=== PATIENT | female | born 1975 | race American Indian/Alaskan Native ===

== ENCOUNTER 2020-10-23 12:02 | Emergency (ER) | payer SELFPAY ==
[2020-10-23 14:19] VITALS: BP 140/102
--- NOTE | 2020-10-23 14:25 | Emergency Department Report ---
ED Shortness of Breath HPI - General Chief Complaint: Dyspnea/Respdistress Stated Complaint: SOB Time Seen by Provider: 10/23/20 14:18 Source: patient Mode of arrival: Ambulatory Limitations: No Limitations - History of Present Illness Initial Comments: Patient came in because of chest pain and shortness of breath. She has been having these intermittent episodes of chest pain or shortness of breath for the last several weeks. She has had no hematemesis or coffee-ground emesis. There is no melenic stool. There is no cough or congestion. She states that she just does not feel well. Patient does not know what is causing her symptoms. They are not specifically exertional. The symptoms are not positional. They are not necessarily related to orthopnea or PND. Patient states that she came here because she just did not know what to do. She describes shortness of breath sometimes with exertion and sometimes at rest. She currently does not feel dyspneic. She states that the pain she has been having is across the precordium. It is an aching pain. It is not radiating. It is not migratory. Again, this is not exertional. Patient has never had symptoms like this before. There is no history of recent travel or trauma. She has had no known coronavirus exposure. - Related Data Previous Rx's Medication Instructions Recorded Last Taken Type Potassium Chloride 30 meq PO DAILY #30 tablet.er 10/23/20 Unknown Rx Allergies Allergy/AdvReac Type Severity Reaction Status Date / Time No Known Allergies Allergy Verified 10/23/20 15:46 ED Review of Systems ROS: Stated complaint: SOB Other details as noted in HPI Comment: All other systems reviewed and negative Constitutional: denies: fever Eyes: denies: vision change ENT: denies: throat pain Respiratory: denies: cough Cardiovascular: as per HPI Endocrine: denies: unexplained weight loss Gastrointestinal: denies: abdominal pain Genitourinary: denies: dysuria Musculoskeletal: denies: back pain Skin: denies: rash Neurological: denies: headache Hematological/Lymphatic: denies: easy bruising ED Past Medical Hx - Past Medical History Hx Hypertension: Yes - Family History Family history: hypertension - Medications Home Medications: Home Medications Medication Instructions Recorded Confirmed Last Taken Type Potassium Chloride 30 meq PO DAILY #30 tablet.er 10/23/20 Unknown Rx ED Physical Exam - General Limitations: No Limitations General appearance: alert, in no apparent distress, anxious - Head Head exam: Present: atraumatic, normocephalic, normal inspection - Eye Eye exam: Present: normal appearance, PERRL, EOMI - ENT ENT exam: Present: normal exam, normal orophraynx, mucous membranes moist - Neck Neck exam: Present: normal inspection. Absent: meningismus - Respiratory Respiratory exam: Present: normal lung sounds bilaterally. Absent: respiratory distress - Cardiovascular Cardiovascular Exam: Present: regular rate, normal rhythm - GI/Abdominal GI/Abdominal exam: Present: soft. Absent: tenderness - Extremities Exam Extremities exam: Present: normal capillary refill. Absent: pedal edema, calf tenderness - Back Exam Back exam: Present: normal inspection. Absent: CVA tenderness (R), CVA tenderness (L) - Neurological Exam Neurological exam: Present: alert, oriented X3, normal gait. Absent: motor sensory deficit - Psychiatric Psychiatric exam: Present: anxious - Skin Skin exam: Present: warm, dry ED Course Vital Signs 10/23/20 14:15 Temperature 98.3 F Pulse Rate 133 H Respiratory 26 H Rate Blood Pressure 140/102 [Left] O2 Sat by Pulse 99 Oximetry - Reevaluation(s) Reevaluation #1: 10/23/20 14:24 IV, labs, and EKG were ordered. Reevaluation #2: 10/23/20 18:06 Labs were pending. Labs have been noted. These been discussed with the patient. Oral potassium has been ordered. ED Medical Decision Making - Lab Data Result diagrams: 10/23/20 17:07 10/23/20 17:07 - EKG Data -: EKG Interpreted by [place] EKG shows normal: sinus rhythm, axis, intervals, QRS complexes Rate: normal, tachycardia - EKG Data When compared to previous EKG there are: no significant change Interpretation: no acute changes - Radiology Data Radiology results: report reviewed - Medical Decision Making Patient presented with multiple issues including chest pain or shortness of breath. Etiology for the symptoms is not known. These have been prolonged in nature. She does not have ACS risk factors. She does not have a change in EKG or troponin. She does not appear to be septic or toxic. Patient does not have risk factor for pulmonary embolism. Her symptoms are nonpleuritic. There is no unilateral leg swelling or edema. She does not have known coronavirus symptoms. There was no pulse deficit to suggest aortic dissection. Radiographically, there is no obvious pneumonia or pneumothorax. Patient was feeling better. Her hypokalemia was addressed. Whether that is contributing is unclear. We did discuss outpatient treatment as well as outpatient evaluation including echocardiogram. She was invited to return for any problems. We did have a discussion about joint decision-making regarding neck steps. She elected to go home with outpatient evaluation. Critical Care Time: No Critical care attestation.: If time is entered above; I have spent that time in minutes in the direct care of this critically ill patient, excluding procedure time. ED Disposition Clinical Impression: Substernal chest pain, Sinus tachycardia, Shortness of breath, Hypokalemia Disposition: 01 HOME / SELF CARE / HOMELESS Is pt being admited?: No Does the pt Need Aspirin: No Condition: Stable Instructions: Nonspecific Chest Pain, Adult, Shortness of Breath, Adult, Easy- to-Read, Hypokalemia Additional Instructions: Eat tomatoes, bananas, and drink orange juice. Follow-up with your regular doctor for recheck and further evaluation. Continue home medications. Return for any problems or concerns. Take an aspirin every day. Prescriptions: Potassium Chloride 30 meq PO DAILY #30 tablet.er
--- NOTE | 2020-10-23 14:58 | XRay Report ---
CHEST 2 VIEWS INDICATION: pain. Acute generalized chest pain COMPARISON: None FINDINGS: SUPPORT DEVICES: None. HEART: Within normal limits. LUNGS/PLEURA: No acute air space or interstitial disease. No pneumothorax. ADDITIONAL FINDINGS: None. IMPRESSION: 1. No acute findings. Signer Name: Donnie Donald MD Signed: 10/23/2020 2:53 PM Workstation Name: [id number]
[2020-10-23] MEDS ORDERED: SODIUM CHLORIDE 0.9% 1000 ML 1,000 ML IV ONE ×2 (16:00→17:00)
[2020-10-23 17:25] LABS: Mean Corpuscular HGB Conc 37 % (30-34); Mean Corpuscular Volume 96 fl (79-97); Platelet Count 284 K/mm3 (140-440); Red Blood Count 4.49 M/mm3 (3.65-5.03); Red Cell Distribution Width 12.4 % (13.2-15.2)
[2020-10-23 17:26] LABS: Hematocrit 42.9 % (30.3-42.9); Hemoglobin 15.9 gm/dl (10.1-14.3)
[2020-10-23 17:43] LABS: Blood Urea Nitrogen 6 mg/dL (7-17); Calcium 9.1 mg/dL (8.4-10.2); Hemolysis Index 5
[2020-10-23 17:45] LABS: BUN/Creatinine Ratio 20
[2020-10-23] MEDS ORDERED: POTASSIUM CHLORIDE ER 20 MEQ TAB PO ONE (17:57)
--- NOTE | 2020-10-24 10:07 | Electrocardiograph Report ---
[facility] Test Date: 2020-10-23 Test Time: 14:40:30 Pat Name: FAINA ROSSI Department: Room: Gender: F Commissioning Engineer: : 1975 Requested By: ISAAC WANG Order Number: [id number] Reading MD: Christian Grijalva Measurements Intervals [place] Rate: 116 P: 64 WV: 170 QRS: -16 QRSD: 97 T: 8 QT: QTc: 0 Interpretive Statements Sinus tachycardia Right atrial enlargement Anteroseptal infarct, age indeterminate No previous ECG available for comparison Electronically Signed On 10-24-2020 10:07:27 EDT by Christian Grijalva
== END 2020-10-23 19:11 | disposition home or self-care (01) ==
LOC: ED 12:02
DX: R07.2 Precordial pain (principal); R00.0 Tachycardia, unspecified; R06.02 Shortness of breath; E87.6 Hypokalemia; I10 Essential (primary) hypertension; Z79.899 Other long term (current) drug therapy
CPT/HCPCS: 36415; 71046; 80048; 84484; 85027; 93005; 96360; 96361; 99284; J7030

== ENCOUNTER 2021-07-22 08:41 | Emergency (ER) | payer BC, OTHER ==
[2021-07-22 10:09] LABS: Hematocrit 40.9 % (30.3-42.9); Hemoglobin 13.8 gm/dl (10.1-14.3); Mean Corpuscular HGB Conc 34 % (30-34); Mean Corpuscular Volume 99 fl (79-97); Platelet Count 285 K/mm3 (140-440); Red Blood Count 4.14 M/mm3 (3.65-5.03); Red Cell Distribution Width 12.2 % (13.2-15.2)
[2021-07-22 10:19] LABS: Blood Urea Nitrogen 9 mg/dL (7-17); Calcium 9.4 mg/dL (8.4-10.2); Hemolysis Index 9
[2021-07-22 10:21] LABS: BUN/Creatinine Ratio 23
[2021-07-22 10:51] LABS: Basophils % (Manual) 0 % (0.0-1.8); Eosinophils % (Manual) 0 % (0.0-4.3); Myelocytes # (Manual) 0.1 K/mm3; Total Cells Counted 100
[2021-07-22 10:52] LABS: Large Platelets Few; Platelet Estimate Consistent w Auto; RBC Morphology Normal
[2021-07-22 11:34] LABS: Bilirubin,Urine NEG (Negative); Blood,Urine NEG (Negative); Color,Urine Yellow (Yellow); Mucus,Urine 2+ /HPF; Protein,Urine <15 mg/dL mg/dL (Negative); Urobilinogen,Urine < 2.0 mg/dL (<2.0)
[2021-07-22 11:35] LABS: HCG Qualitative,Urine Negative (Negative)
[2021-07-22] MEDS ORDERED: SODIUM CHLORIDE 0.9% 1000 ML 1,000 ML IV ONE (13:29)
[2021-07-22] MEDS ORDERED: MORPHINE 4 MG/1 ML INJ IV ONE (13:29)
[2021-07-22] MEDS ORDERED: ONDANSETRON 4 MG/2 ML INJ IV ONE (13:29)
[2021-07-22 14:47] LABS: Alanine Aminotransferase 52 units/L (7-56); Albumin 4.5 g/dL (3.9-5)
[2021-07-22 15:11] LABS: Bilirubin,Direct < 0.2 mg/dL (0-0.2)
--- NOTE | 2021-07-22 15:42 | Cat Scan Report ---
CT abdomen pelvis w con INDICATION: abd pain with n/v. COMPARISON: None TECHNIQUE: Abdominal and pelvic CT exam performed. All CT scans at this location are performed using CT dose reduction for ALARA by means of automated exposure control. FINDINGS: CT ABDOMEN and PELVIS: Lung Bases: Dependent atelectasis. Liver: No significant abnormality. Biliary: No significant abnormality. Spleen: No significant abnormality. Pancreas: No significant abnormality. Adrenals: No significant abnormality. 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 There is mild right hydroureteronephrosis. No intraureteral stone identified. Lymphatics: There is a mildly prominent lymph node seen posterior medial to the right external jugula r vein which measures 1.5 cm on image 128 of series 2. Otherwise there are scattered lymph nodes whic h are not pathologically enlarged. Vasculature: Mild atherosclerosis. Bowel: No significant abnormality. Normal appendix. Pelvis: No significant abnormality. Osseous Structures: No aggressive osseous lesion. Additional Findings: None IMPRESSION: 1. Mild right hydroureteronephrosis without obstructing stone. Findings are nonspecific, correlate wi th urinalysis. 2. There is a mildly prominent lymph node along the right iliac chain. Although this is likely benign , a follow-up CT in 6 months is recommended to ensure stability Signer Name: Bran Bal MD Signed: 07/22/2021 3:38 PM Workstation Name: [id number]
--- NOTE | 2021-07-22 15:49 | Emergency Department Report ---
ED Abdominal Pain HPI - General Chief Complaint: Abdominal Pain Stated Complaint: ABD PAIN/GALSTONES POTASSIUM Time Seen by Provider: 07/22/21 13:18 Source: patient Mode of arrival: Ambulatory Limitations: No Limitations - History of Present Illness Initial Comments: This is a 46-year-old female nontoxic, well nourished in appearance, no acute signs of distress presents to the ED with c/o of nausea and vomiting and abdominal pain several days. Patient describes vomiting as food content and yellow gastric acid. Patient describes abdominal pain as cramping and aching with level of 8/10 to RLQ without radiation. Patient denies chest pain, short of breath, fever, hemoptysis, blood in stool, chills, headache, stiff neck, numbness or tingling. Patient denies any diarrhea or constipation. Patient denies any urinary symptoms. Denies any blood in stool. Patient denies any recent travels. Patient denies any allergies. MD Complaint: abdominal pain -: days(s) Location: RLQ Radiation: none Migration to: no migration Severity: mild Severity scale (0 -10): 8 Quality: cramping, aching Consistency: constant Improves With: nothing Worsens With: nothing Associated Symptoms: nausea, vomiting. denies: diarrhea, fever, chills, constipation, dysuria, hematemesis, hematochezia, melena, hematuria, anorexia, syncope - Related Data Previous Rx's Medication Instructions Recorded Last Taken Type Ibuprofen [Motrin] 800 mg PO Q8HR PRN #20 tablet 10/23/20 Unknown Rx Potassium Chloride 30 meq PO DAILY #30 tablet.er 10/23/20 Unknown Rx Dicyclomine [Bentyl] 20 mg PO BID PRN #14 tablet 07/22/21 Unknown Rx Ondansetron [Zofran Odt] 4 mg PO Q8HR PRN #12 tab.rapdis 07/22/21 Unknown Rx Allergies Allergy/AdvReac Type Severity Reaction Status Date / Time No Known Allergies Allergy Verified 10/23/20 15:46 ED Review of Systems ROS: Stated complaint: ABD PAIN/GALSTONES POTASSIUM Other details as noted in HPI Comment: All other systems reviewed and negative Constitutional: denies: chills, fever Eyes: denies: eye pain, eye discharge, vision change ENT: denies: ear pain, throat pain Respiratory: denies: cough, shortness of breath, wheezing Cardiovascular: denies: chest pain, palpitations Endocrine: no symptoms reported Gastrointestinal: abdominal pain, nausea, vomiting. denies: diarrhea, constipation, hematemesis, melena, hematochezia Genitourinary: denies: urgency, dysuria, discharge Musculoskeletal: denies: back pain, joint swelling, arthralgia Skin: denies: rash, lesions Neurological: denies: headache, weakness, paresthesias Psychiatric: denies: anxiety, depression Hematological/Lymphatic: denies: easy bleeding, easy bruising ED Past Medical Hx - Past Medical History Hx Hypertension: Yes - Medications Home Medications: Home Medications Medication Instructions Recorded Confirmed Last Taken Type Ibuprofen [Motrin] 800 mg PO Q8HR PRN #20 tablet 10/23/20 Unknown Rx Potassium Chloride 30 meq PO DAILY #30 tablet.er 10/23/20 Unknown Rx Dicyclomine [Bentyl] 20 mg PO BID PRN #14 tablet 07/22/21 Unknown Rx Ondansetron [Zofran Odt] 4 mg PO Q8HR PRN #12 tab.rapdis 07/22/21 Unknown Rx ED Physical Exam - General Limitations: No Limitations General appearance: alert, in no apparent distress - Head Head exam: Present: atraumatic, normocephalic - Eye Eye exam: Present: normal appearance - Neck Neck exam: Present: normal inspection, full ROM. Absent: lymphadenopathy - Respiratory Respiratory exam: Present: normal lung sounds bilaterally. Absent: respiratory distress, wheezes, rales, rhonchi, stridor, chest wall tenderness, accessory muscle use, decreased breath sounds, prolonged expiratory - Cardiovascular Cardiovascular Exam: Present: regular rate, normal rhythm, normal heart sounds. Absent: bradycardia, tachycardia, irregular rhythm, systolic murmur, diastolic murmur, rubs, gallop - GI/Abdominal GI/Abdominal exam: Present: soft, tenderness (RLQ tenderness), normal bowel sounds. Absent: distended, guarding, rebound, rigid, diminished bowel sounds - Extremities Exam Extremities exam: Present: normal inspection, full ROM - Back Exam Back exam: Present: normal inspection, full ROM. Absent: tenderness, CVA t enderness (R), CVA tenderness (L), muscle spasm, paraspinal tenderness, vertebral tenderness, rash noted - Neurological Exam Neurological exam: Present: alert, oriented X3, normal gait - Psychiatric Psychiatric exam: Present: normal affect, normal mood - Skin Skin exam: Present: warm, dry, intact, normal color. Absent: rash ED Course Vital Signs 07/22/21 07/22/21 09:31 14:31 Temperature 98.8 F Pulse Rate 89 Respiratory 16 16 Rate Blood Pressure 101/88 [Left] O2 Sat by Pulse 99 Oximetry ED Medical Decision Making - Lab Data Result diagrams: 07/22/21 09:36 07/22/21 09:36 Lab Results 07/22/21 07/22/21 07/22/21 Range/Units 09:36 09:36 09:36 WBC 5.2 (4.5-11.0) K/mm3 RBC 4.14 (3.65-5.03) M/mm3 Hgb 13.8 (10.1-14.3) gm/dl Hct 40.9 (30.3-42.9) % MCV 99 H (79-97) fl MCH 33 H (28-32) pg MCHC 34 (30-34) % RDW 12.2 L (13.2-15.2) % Plt Count 285 (140-440) K/mm3 Add Manual Diff Complete Total Counted 100 Seg Neuts % (Manual) 35.0 L (40.0-70.0) % Band Neutrophils % 0 % Lymphocytes % (Manual) 53.0 H (13.4-35.0) % Reactive Lymphs % (Man) 0 % Monocytes % (Manual) 9.0 H (0.0-7.3) % Eosinophils % (Manual) 0 (0.0-4.3) % Basophils % (Manual) 0 (0.0-1.8) % Metamyelocytes % 1.0 % Myelocytes % 2.0 % Promyelocytes % 0 % Blast Cells % 0 % Nucleated RBC % Not Reportable Seg Neutrophils # Man 1.8 (1.8-7.7) K/mm3 Band Neutrophils # 0.0 K/mm3 Lymphocytes # (Manual) 2.8 (1.2-5.4) K/mm3 Abs React Lymphs (Man) 0.0 K/mm3 Monocytes # (Manual) 0.5 (0.0-0.8) K/mm3 Eosinophils # (Manual) 0.0 (0.0-0.4) K/mm3 Basophils # (Manual) 0.0 (0.0-0.1) K/mm3 Metamyelocytes # 0.1 K/mm3 Myelocytes # 0.1 K/mm3 Promyelocytes # 0.0 K/mm3 Blast Cells # 0.0 K/mm3 WBC Morphology Not Reportable Hypersegmented Neuts Not Reportable Hyposegmented Neuts Not Reportable Hypogranular Neuts Not Reportable Smudge Cells Not Reportable Toxic Granulation Not Reportable Toxic Vacuolation Not Reportable Dohle Bodies Not Reportable Pelger-Huet Anomaly Not Reportable Shani Rods Not Reportable Platelet Estimate Consistent w auto Clumped Platelets Not Reportable Plt Clumps, EDTA Not Reportable Large Platelets Few Giant Platelets Not Reportable Platelet Satelliting Not Reportable Plt Morphology Comment Not Reportable RBC Morphology Normal Dimorphic RBCs Not Reportable Polychromasia Not Reportable Hypochromasia Not Reportable Poikilocytosis Not Reportable Anisocytosis Not Reportable Microcytosis Not Reportable Macrocytosis Not Reportable Spherocytes Not Reportable Pappenheimer Bodies Not Reportable Sickle Cells Not Reportable Target Cells Not Reportable Tear Drop Cells Not Reportable Ovalocytes Not Reportable Helmet Cells Not Reportable [place] Bodies Not Reportable Levant Rings Not Reportable [place] Cells Not Reportable Bite Cells Not Reportable Crenated Cell Not Reportable Elliptocytes Not Reportable Acanthocytes (Spur) Not Reportable Rouleaux Not Reportable Hemoglobin C Crystals Not Reportable Schistocytes Not Reportable Malaria parasites Not Reportable Naveed Bodies Not Reportable Hem Pathologist Commnt No Sodium 141 (137-145) mmol/L Potassium 3.8 (3.6-5.0) mmol/L Chloride 105.9 (98-107) mmol/L Carbon Dioxide 23 (22-30) mmol/L Anion Gap 16 mmol/L BUN 9 (7-17) mg/dL Creatinine 0.4 L (0.6-1.2) mg/dL Estimated GFR > 60 ml/min BUN/Creatinine Ratio 23 % Glucose 85 (65-100) mg/dL Calcium 9.4 (8.4-10.2) mg/dL Total Bilirubin 0.30 (0.1-1.2) mg/dL Direct Bilirubin < 0.2 (0-0.2) mg/dL Indirect Bilirubin 0.1 mg/dL AST 76 H (5-40) units/L ALT 52 (7-56) units/L Alkaline Phosphatase 134 H (35-129) units/L Total Protein 8.6 H (6.3-8.2) g/dL Albumin 4.5 (3.9-5) g/dL Albumin/Globulin Ratio 1.1 % Lipase 23 (13-60) units/L Urine Color (Yellow) Urine Turbidity (Clear) Urine pH (5.0-7.0) Ur Specific [place] (1.003-1.030) Urine Protein (Negative) mg/dL Urine Glucose (UA) (Negative) mg/dL Urine Ketones (Negative) mg/dL Urine Blood (Negative) Urine Nitrite (Negative) Urine Bilirubin (Negative) Urine Urobilinogen (<2.0) mg/dL Ur Leukocyte Esterase (Negative) Urine WBC (Auto) (0.0-6.0) /HPF Urine RBC (Auto) (0.0-6.0) /HPF U Epithel Cells (Auto) (0-13.0) /HPF Urine Mucus /HPF Urine HCG, Qual (Negative) 07/22/21 Range/Units Unknown WBC (4.5-11.0) K/mm3 RBC (3.65-5.03) M/mm3 Hgb (10.1-14.3) gm/dl Hct (30.3-42.9) % MCV (79-97) fl MCH (28-32) pg MCHC (30-34) % RDW (13.2-15.2) % Plt Count (140-440) K/mm3 Add Manual Diff Total Counted Seg Neuts % (Manual) (40.0-70.0) % Band Neutrophils % % Lymphocytes % (Manual) (13.4-35.0) % Reactive Lymphs % (Man) % Monocytes % (Manual) (0.0-7.3) % Eosinophils % (Manual) (0.0-4.3) % Basophils % (Manual) (0.0-1.8) % Metamyelocytes % % Myelocytes % % Promyelocytes % % Blast Cells % % Nucleated RBC % Seg Neutrophils # Man (1.8-7.7) K/mm3 Band Neutrophils # K/mm3 Lymphocytes # (Manual) (1.2-5.4) K/mm3 Abs React Lymphs (Man) K/mm3 Monocytes # (Manual) (0.0-0.8) K/mm3 Eosinophils # (Manual) (0.0-0.4) K/mm3 Basophils # (Manual) (0.0-0.1) K/mm3 Metamyelocytes # K/mm3 Myelocytes # K/mm3 Promyelocytes # K/mm3 Blast Cells # K/mm3 WBC Morphology Hypersegmented Neuts Hyposegmented Neuts Hypogranular Neuts Smudge Cells Toxic Granulation Toxic Vacuolation Dohle Bodies Pelger-Huet Anomaly Shani Rods Platelet Estimate Clumped Platelets Plt Clumps, EDTA Large Platelets Giant Platelets Platelet Satelliting Plt Morphology Comment RBC Morphology Dimorphic RBCs Polychromasia Hypochromasia Poikilocytosis Anisocytosis Microcytosis Macrocytosis Spherocytes Pappenheimer Bodies Sickle Cells Target Cells Tear Drop Cells Ovalocytes Helmet Cells [place] Bodies Levant Rings Feliberto Cells Bite Cells Crenated Cell Elliptocytes Acanthocytes (Spur) Rouleaux Hemoglobin C Crystals Schistocytes Malaria parasites Naveed Bodies Hem Pathologist Commnt Sodium (137-145) mmol/L Potassium (3.6-5.0) mmol/L Chloride (98-107) mmol/L Carbon Dioxide (22-30) mmol/L Anion Gap mmol/L BUN (7-17) mg/dL Creatinine (0.6-1.2) mg/dL Estimated GFR ml/min BUN/Creatinine Ratio % Glucose (65-100) mg/dL Calcium (8.4-10.2) mg/dL Total Bilirubin (0.1-1.2) mg/dL Direct Bilirubin (0-0.2) mg/dL Indirect Bilirubin mg/dL AST (5-40) units/L ALT (7-56) units/L Alkaline Phosphatase (35-129) units/L Total Protein (6.3-8.2) g/dL Albumin (3.9-5) g/dL Albumin/Globulin Ratio % Lipase (13-60) units/L Urine Color Yellow (Yellow) Urine Turbidity Clear (Clear) Urine pH 6.0 (5.0-7.0) Ur Specific [place] 1.018 (1.003-1.030) Urine Protein <15 mg/dl (Negative) mg/dL Urine Glucose (UA) Neg (Negative) mg/dL Urine Ketones Neg (Negative) mg/dL Urine Blood Neg (Negative) Urine Nitrite Neg (Negative) Urine Bilirubin Neg (Negative) Urine Urobilinogen < 2.0 (<2.0) mg/dL Ur Leukocyte Esterase Tr (Negative) Urine WBC (Auto) 6.0 (0.0-6.0) /HPF Urine RBC (Auto) 2.0 (0.0-6.0) /HPF U Epithel Cells (Auto) 3.0 (0-13.0) /HPF Urine Mucus 2+ /HPF Urine HCG, Qual Negative (Negative) - Radiology Data [facility] [address] [place] [address] Cat Scan Report Signed Patient: FAINA ALVAREZ MR#: [id number] 7 : 1975 Acct:[id number] Age/Sex: 46 / F ADM Date: 07/22/21 Loc: ED Attending Dr: Ordering Physician: JENNIFFER BOTELLO NP Date of Service: 07/22/21 Procedure(s): CT abdomen pelvis w con Accession Number(s): [id number] cc: JENNIFFER BOTELLO NP CT abdomen pelvis w con INDICATION: abd pain with n/v. COMPARISON: None TECHNIQUE: Abdominal and pelvic CT exam performed. All CT scans at this location are performed using CT dose reduction for ALARA by means of automated exposure control. FINDINGS: CT ABDOMEN and PELVIS: Lung Bases: Dependent atelectasis. Liver: No significant abnormality. Biliary: No significant abnormality. Spleen: No significant abnormality. Pancreas: No significant abnormality. Adrenals: No significant abnormality. 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 There is mild right hydroureteronephrosis. No intraureteral stone identified. Lymphatics: There is a mildly prominent lymph node seen posterior medial to the right external jugular vein which measures 1.5 cm on image 128 of series 2. Otherwise there are scattered lymph nodes which are not pathologically enlarged. Vasculature: Mild atherosclerosis. Bowel: No significant abnormality. Normal appendix. Pelvis: No significant abnormality. Osseous Structures: No aggressive osseous lesion. Additional Findings: None IMPRESSION: 1. Mild right hydroureteronephrosis without obstructing stone. Findings are nonspecific, correlate with urinalysis. 2. There is a mildly prominent lymph node along the right iliac chain. Although this is likely benign, a follow-up CT in 6 months is recommended to ensure stability Signer Name: Bran Bal MD Signed: 07/22/2021 3:38 PM Workstation Name: [id number] Transcribed By: CS Dictated By: Bran Bal MD Electronically Authenticated By: Bran Bal MD Signed Date/Time: 07/22/211537 DD/ 29 TD/TT: - Medical Decision Making This is a 46-year-old female that presents with abdominal pain, hydronephrosis, nausea vomiting.. Patient is stable and was examined by me. Labs obtained. UA obtained. CT of abdomen obtained and dictated by the radiologist. Patient is notified of the report with no questions noted by the patient. Vital signs are stable prior to discharge. Patient received medical treatment in the ED which patient stated symptoms has resovled and subsided. Was instructed note to operate any machinery due to possible drowsiness and stated someone will drive the patient home. A by mouth challenge has been obtained and patient tolerated well with no nausea vomiting. Patient was also instructed to Follow-up with a primary care doctor in 3-5 days or if symptoms worsen and continue return to emergency room as soon as possible. At time of discharge, the patient does not seem toxic or ill in appearance. No acute signs of distress noted. Patient agrees to discharge treatment plan of care. No further questions noted by the patient. Critical care attestation.: If time is entered above; I have spent that time in minutes in the direct care of this critically ill patient, excluding procedure time. ED Disposition Clinical Impression: Hydronephrosis, right Abdominal pain Qualifiers: Abdominal location: right lower quadrant Qualified Code(s): R10.31 - Right l ower quadrant pain Nausea & vomiting Qualifiers: Vomiting type: unspecified Qualified Code(s): R11.2 - Nausea with vomiting, unspecified Disposition: 01 HOME / SELF CARE / HOMELESS Is pt being admited?: No Does the pt Need Aspirin: No Condition: Stable Instructions: Abdominal Pain (ED), Nausea and Vomiting, Adult, Abdominal Pain, Adult, Hydronephrosis Additional Instructions: Follow-up with a primary care and register of deeds doctor in 3-5 days or if symptoms worsen and continue return to emergency room as soon as possible. Prescriptions: Dicyclomine [Bentyl] 20 mg PO BID PRN #14 tablet PRN Reason: abdominal pain Ondansetron [Zofran Odt] 4 mg PO Q8HR PRN #12 tab.rapdis PRN Reason: nausea Referrals: PRIMARY CAREMD [Referring] - 3-5 Days ISABEL LAINEZ MD [Staff Physician] - 3-5 Days [facility] [Provider Group] - 3-5 Days Time of Disposition: 15:51
[2021-07-22 18:07] VITALS: BP 128/78
== END 2021-07-22 18:05 | disposition home or self-care (01) ==
LOC: ED 08:41
DX: N13.30 Unspecified hydronephrosis (principal); R10.30 Lower abdominal pain, unspecified; R11.2 Nausea with vomiting, unspecified
CPT/HCPCS: 36415; 74177; 80048; 80076; 81001; 81025; 83690; 85007; 85025; 96361; 96374; 96375; 99284; J2270; J2405; J7030; Q9967

== ENCOUNTER 2021-09-18 05:11 | Emergency (ER) | payer BC ==
[2021-09-18] MEDS ORDERED: IBUPROFEN 800 MG TAB PO ONE (09:02)
[2021-09-18 10:15] LABS: Bilirubin,Urine 1+ (Negative); Color,Urine Yellow (Yellow)
[2021-09-18 10:16] LABS: Blood,Urine 3+ (Negative); Ictotest,Urine Negative (Negative)
[2021-09-18 10:29] LABS: Bacteria,Urine 1+ /HPF (Negative); Calcium Oxalate Crystals,Urine 1+; Mucus,Urine 3+ /HPF; Renal Epithelial Cells,Urine 3 /LPF
[2021-09-18] MEDS ORDERED: LIDOCAINE-MPF (1%) 10 MG/1 ML VIAL 5 ML INFILTRATI ONE (10:34)
--- NOTE | 2021-09-18 10:35 | Emergency Department Report ---
ED Female HPI - General Chief complaint: Vaginal Bleeding Stated complaint: BLEEDING STOMAC,BACK PAIN Time Seen by Provider: 09/18/21 07:58 Source: patient Mode of arrival: Ambulatory Limitations: No Limitations - History of Present Illness Initial comments: Patient is a 46-year-old female she comes to the emergency room this morning after having 2 episodes of vaginal bleeding last night. She states that she has not had a menstrual cycle in over 25 years. The 2 episodes overnight were after urinating and in small amounts. Patient does not have an [facility]. Patient does not think urine is involved. Patient is having what she describes as cramping of her suprapubic area. Patient denies any vaginal discharge. She denies back pain. She denies fever or chills. She denies nausea vomiting or diarrhea. Patient is ambulatory, nontoxic [id number] on arrival to ER. MD Complaint: vaginal bleeding -: Sudden, hour(s) Severity: mild Severity scale (0 -10): 2 Quality: cramping Consistency: intermittent Improves with: none Worsens with: none Are you Now?: No Associated Symptoms: denies other symptoms, vaginal bleeding. denies: vaginal discharge, abdominal pain, nausea/vomiting, fever/chills, headaches, loss of appetite, dysuria, hematuria, rash, seizure, shortness of breath, syncope, weakness - Related Data Sexually active: No Home Medications Medication Instructions Recorded Confirmed Last Taken Amlodipine Besylate [Norvasc] 5 mg PO DAILY 07/25/21 07/28/21 Unknown Cyproheptadine [Periactin] 4 mg PO HS PRN 07/29/21 07/29/21 Unknown Escitalopram Oxalate [Lexapro] 20 mg PO QDAY 07/29/21 07/29/21 Unknown Nortriptyline [Pamelor] 10 mg PO QHS 07/29/21 07/29/21 Unknown Potassium Bicarbonate/Cit AC 20 meq PO QDAY 07/29/21 07/29/21 3 Days Ago [Effer-K 20 Meq] ~07/26/21 megestroL [Megace] 20 mg PO QDAY PRN 07/29/21 07/29/21 07/25/21 propranoloL [Inderal] 10 mg PO BID PRN 07/29/21 07/29/21 1 Week Ago ~07/22/21 Previous Rx's Medication Instructions Recorded Last Taken Type Sulfamethoxazole/Trimethoprim 1 each PO BID #10 tablet 09/18/21 Unknown Rx [Bactrim DS TAB] Allergies Allergy/AdvReac Type Severity Reaction Status Date / Time tramadol AdvReac Vomiting Verified 07/25/21 14:16 ED Review of Systems ROS: Stated complaint: BLEEDING STOMAC,BACK PAIN Other details as noted in HPI Comment: All other systems reviewed and negative ED Past Medical Hx - Past Medical History Previous Medical History?: Yes Hx Hypertension: Yes Hx Congestive Heart Failure: No Hx Diabetes: No Hx GERD: Yes Hx Liver Disease: Yes (Mildly elevated LFTs) Hx Sickle Cell Disease: No Hx Headaches / Migraines: Yes (Migraines) Hx Asthma: No Hx COPD: No - Surgical History Past Surgical History?: Yes Additional Surgical History: partial hysterectomy. tubaligation - Family History Family history: no significant - Social History Smoking Status: Unknown if ever smoked Substance Use Type: None - Medications Home Medications: Home Medications Medication Instructions Recorded Confirmed Last Taken Type Amlodipine Besylate [Norvasc] 5 mg PO DAILY 07/25/21 07/28/21 Unknown History Cyproheptadine [Periactin] 4 mg PO HS PRN 07/29/21 07/29/21 Unknown History Escitalopram Oxalate [Lexapro] 20 mg PO QDAY 07/29/21 07/29/21 Unknown History Nortriptyline [Pamelor] 10 mg PO QHS 07/29/21 07/29/21 Unknown History Potassium Bicarbonate/Cit AC 20 meq PO QDAY 07/29/21 07/29/21 3 Days Ago History [Effer-K 20 Meq] ~07/26/21 megestroL [Megace] 20 mg PO QDAY PRN 07/29/21 07/29/21 07/25/21 History propranoloL [Inderal] 10 mg PO BID PRN 07/29/21 07/29/21 1 Week Ago History ~07/22/21 Sulfamethoxazole/Trimethoprim 1 each PO BID #10 tablet 09/18/21 Unknown Rx [Bactrim DS TAB] ED Physical Exam - General Limitations: No Limitations General appearance: alert, in no apparent distress - Head Head exam: Present: atraumatic, normocephalic - Eye Eye exam: Present: normal appearance - ENT ENT exam: Present: mucous membranes moist - Neck Neck exam: Present: normal inspection - Respiratory Respiratory exam: Present: normal lung sounds bilaterally. Absent: respiratory distress - Cardiovascular Cardiovascular Exam: Present: regular rate, normal rhythm. Absent: systolic murmur, diastolic murmur, rubs, gallop - GI/Abdominal GI/Abdominal exam: Present: soft, normal bowel sounds - Extremities Exam Extremities exam: Present: normal inspection - Back Exam Back exam: Present: normal inspection - Neurological Exam Neurological exam: Present: alert, oriented X3 - Psychiatric Psychiatric exam: Present: normal affect, normal mood - Skin Skin exam: Present: warm, dry, intact, normal color. Absent: rash ED Course Vital Signs 09/18/21 09/18/21 05:24 09:14 Temperature 98.6 F Pulse Rate 87 Respiratory 18 14 Rate Blood Pressure 129/88 O2 Sat by Pulse 98 Oximetry - Reevaluation(s) Reevaluation #1: 09/18/21 10:47 Home medications include blood pressure medications, supplemental potassium and multivitamins. ED Medical Decision Making - Medical Decision Making Lab Results 09/18/21 Range/Units Unknown Urine Color Yellow (Yellow) Urine Turbidity Clear (Clear) Urine pH 7.0 (5.0-7.0) Ur Specific [place] 1.020 (1.003-1.030) Urine Protein 100 mg/dl (Negative) mg/dL Urine Glucose (UA) Negative (Negative) mg/dL Urine Ketones 2+ (Negative) mg/dL Urine Blood 3+ (Negative) Urine Nitrite Negative (Negative) Urine Bilirubin 1+ (Negative) Urine Ictotest Negative (Negative) Urine Urobilinogen 0.0 (<2.0) mg/dL Ur Leukocyte Esterase 1+ (Negative) Urine WBC (Auto) 25.0 H (0.0-6.0) /HPF Urine RBC (Auto) 33.0 (0.0-6.0) /HPF U Epithel Cells (Auto) 15.0 H (0-13.0) /HPF Urine Bacteria (Auto) 1+ (Negative) /HPF Ur Renal Epithelial Cell 3 /LPF Calcium Oxalate Crystal 1+ Urine Mucus 3+ /HPF Vital Signs 09/18/21 09/18/21 05:24 09:14 Temperature 98.6 F Pulse Rate 87 Respiratory 18 14 Rate Blood Pressure 129/88 O2 Sat by Pulse 98 Oximetry UA noted. I had the patient collect the urine in such a way that there would be no contamination from the vaginal vault. She does have 25 WBCs and +1 leuks. In addition she has 33 RBCs and 3+ blood. Urine has reflexed to a culture. Patient was given a gram of Rocephin in the ER. She was medicated for pain with Motrin. Patient will be treated with Bactrim for her UTI. Should she need something else on culture data we need to call her. Patient being referred to [facility] for follow-up care given her concerns for questionable uterine bleeding. Her abdominal exam remains unremarkable with no abdominal tenderness and no CT VA tenderness.Patient has no hypotension or tachycardia. She has no fever. Her pain is not consistent with that of kidney stones. - Differential Diagnosis UTI versus vaginal bleeding. Critical care attestation.: If time is entered above; I have spent that time in minutes in the direct care of this critically ill patient, excluding procedure time. ED Disposition Clinical Impression: UTI (urinary tract infection) Qualifiers: Urinary tract infection type: site unspecified Hematuria presence: with hematuria Qualified Code(s): N39.0 - Urinary tract infection, site not specified; R31.9 - Hematuria, unspecified Disposition: HOME / SELF CARE / HOMELESS Is pt being admited?: No Does the pt Need Aspirin: No Condition: Stable Instructions: Urinary Tract Infection, Adult Additional Instructions: Take medication as instructed until gone. In the meantime to call [facility] to make a follow-up appointment as we discussed. This bleeding may strictly be urinary. But she should have a follow-up evaluation. Drink a lot of water. Take Motrin or Tylenol for pain. Diet and activity as tolerated. Drink a lot of water I have given you referrals below Referrals: ISABEL LAINEZ MD [Primary Care Provider] - 3-5 Days NAMITA ALVA MD [Staff Physician] - 3-5 Days Forms: Work/School Release Form(ED) Time of Disposition: 10:50
[2021-09-18 11:45] VITALS: BP 134/86
== END 2021-09-18 11:48 | disposition home or self-care (01) ==
LOC: ED 05:11
DX: N39.0 Urinary tract infection, site not specified (principal); Z88.6 Allergy status to analgesic agent; I10 Essential (primary) hypertension
CPT/HCPCS: 81001; 87086; 96372; 99283; J0696; J3490

== ENCOUNTER 2021-10-29 22:24 | Emergency (ER) | payer BC ==
[2021-10-30 02:15] LABS: Basophils # (Auto) 0.1 K/mm3 (0.0-0.1); Basophils % (Auto) 0.9 % (0.0-1.8); Eosinophils # (Auto) 0.1 K/mm3 (0.0-0.4); Eosinophils % (Auto) 0.8 % (0.0-4.3); Hematocrit 40.3 % (30.3-42.9); Hemoglobin 13.3 gm/dl (10.1-14.3); Lymphocytes # (Auto) 2.2 K/mm3 (1.2-5.4); Lymphocytes % (Auto) 35.8 % (13.4-35.0); Mean Corpuscular HGB Conc 33 % (30-34); Mean Corpuscular Volume 99 fl (79-97); Monocytes # (Auto) 0.6 K/mm3 (0.0-0.8); Monocytes % (Auto) 9.8 % (0.0-7.3); Platelet Count 289 K/mm3 (140-440); Red Blood Count 4.07 M/mm3 (3.65-5.03); Red Cell Distribution Width 12.7 % (13.2-15.2)
[2021-10-30 02:38] LABS: Alanine Aminotransferase 36 units/L (7-56); Albumin 4.5 g/dL (3.9-5); Blood Urea Nitrogen 8 mg/dL (7-17); Calcium 10.4 mg/dL (8.4-10.2); Hemolysis Index 2
[2021-10-30 02:42] LABS: BUN/Creatinine Ratio 16
[2021-10-30] MEDS ORDERED: SODIUM CHLORIDE 0.9% 1000 ML 1,000 ML IV ONE (07:43)
--- NOTE | 2021-10-30 08:12 | Emergency Department Report ---
ED General Adult HPI - General Chief complaint: Weakness Stated complaint: POSS LOW POTASSIUM Time Seen by Provider: 10/30/21 07:18 Source: patient Mode of arrival: Ambulatory Limitations: No Limitations - History of Present Illness Initial comments: This is a 46-year-old female nontoxic, well nourished in appearance, no acute signs of distress presents to the ED with a concern of low potassium. Patient has history of acute on chronic intermittent hypokalemia. Patient stated she was in her primary care and had blood drawn yesterday and developed left-sided numbness had an episode of diarrhea weakness which currently symptoms that she stated has resolved. Patient did she was concerned for her potassium because symptoms were similar when hypokalemic occurs. Otherwise currently patient denies any symptoms or complaints. Patient denies any chest pain, shortness of breath, fever, chills, nausea, vomiting, headache stiff neck, facial drooping or one-sided weakness. Stated allergies to tramadol. -: days(s) Location: left, upper extremity Radiation: non-radiation Severity scale (0 -10): 0 Consistency: now resolved Improves with: none Worsens with: none Associated Symptoms: denies other symptoms. denies: confusion, chest pain, cough, diaphoresis, fever/chills, headaches, loss of appetite, malaise, nausea/vomiting, rash, seizure, shortness of breath, syncope, weakness Treatments Prior to Arrival: none - Related Data Home Medications Medication Instructions Recorded Confirmed Last Taken Amlodipine Besylate [Norvasc] 5 mg PO DAILY 07/25/21 07/28/21 Unknown Cyproheptadine [Periactin] 4 mg PO HS PRN 07/29/21 07/29/21 Unknown Escitalopram Oxalate [Lexapro] 20 mg PO QDAY 07/29/21 07/29/21 Unknown Nortriptyline [Pamelor] 10 mg PO QHS 07/29/21 07/29/21 Unknown Potassium Bicarbonate/Cit AC 20 meq PO QDAY 07/29/21 07/29/21 3 Days Ago [Effer-K 20 Meq] ~07/26/21 megestroL [Megace] 20 mg PO QDAY PRN 07/29/21 07/29/21 07/25/21 propranoloL [Inderal] 10 mg PO BID PRN 07/29/21 07/29/21 1 Week Ago ~07/22/21 Previous Rx's Medication Instructions Recorded Last Taken Type Sulfamethoxazole/Trimethoprim 1 each PO BID #10 tablet 09/18/21 Unknown Rx [Bactrim DS TAB] Allergies Allergy/AdvReac Type Severity Reaction Status Date / Time tramadol AdvReac Vomiting Verified 07/25/21 14:16 ED Review of Systems ROS: Stated complaint: POSS LOW POTASSIUM Other details as noted in HPI Comment: All other systems reviewed and negative Constitutional: denies: chills, fever Eyes: denies: eye pain, eye discharge, vision change ENT: denies: ear pain, throat pain Respiratory: denies: cough, shortness of breath, wheezing Cardiovascular: denies: chest pain, palpitations Endocrine: no symptoms reported Gastrointestinal: denies: abdominal pain, nausea, diarrhea Genitourinary: denies: urgency, dysuria, discharge Musculoskeletal: denies: back pain, joint swelling, arthralgia Skin: denies: rash, lesions Neurological: denies: headache, weakness, paresthesias Psychiatric: denies: anxiety, depression Hematological/Lymphatic: denies: easy bleeding, easy bruising ED Past Medical Hx - Past Medical History Hx Hypertension: Yes Hx Congestive Heart Failure: No Hx Diabetes: No Hx GERD: Yes Hx Liver Disease: Yes (Mildly elevated LFTs) Hx Sickle Cell Disease: No Hx Headaches / Migraines: Yes (Migraines) Hx Asthma: No Hx COPD: No - Surgical History Additional Surgical History: partial hysterectomy. tubaligation - Social History Smoking Status: Unknown if ever smoked Substance Use Type: None - Medications Home Medications: Home Medications Medication Instructions Recorded Confirmed Last Taken Type Amlodipine Besylate [Norvasc] 5 mg PO DAILY 07/25/21 07/28/21 Unknown History Cyproheptadine [Periactin] 4 mg PO HS PRN 07/29/21 07/29/21 Unknown History Escitalopram Oxalate [Lexapro] 20 mg PO QDAY 07/29/21 07/29/21 Unknown History Nortriptyline [Pamelor] 10 mg PO QHS 07/29/21 07/29/21 Unknown History Potassium Bicarbonate/Cit AC 20 meq PO QDAY 07/29/21 07/29/21 3 Days Ago History [Effer-K 20 Meq] ~07/26/21 megestroL [Megace] 20 mg PO QDAY PRN 07/29/21 07/29/21 07/25/21 History propranoloL [Inderal] 10 mg PO BID PRN 07/29/21 07/29/21 1 Week Ago History ~07/22/21 Sulfamethoxazole/Trimethoprim 1 each PO BID #10 tablet 09/18/21 Unknown Rx [Bactrim DS TAB] ED Physical Exam - General Limitations: No Limitations General appearance: alert, in no apparent distress - Head Head exam: Present: atraumatic, normocephalic - Eye Eye exam: Present: normal appearance, PERRL, EOMI - ENT ENT exam: Present: normal exam, normal orophraynx - Neck Neck exam: Present: normal inspection, full ROM. Absent: tenderness, meningismus, lymphadenopathy - Respiratory Respiratory exam: Present: normal lung sounds bilaterally. Absent: respiratory distress, wheezes, rales, rhonchi, stridor, chest wall tenderness, accessory muscle use, decreased breath sounds, prolonged expiratory - Cardiovascular Cardiovascular Exam: Present: regular rate, normal rhythm, normal heart sounds. Absent: bradycardia, tachycardia, irregular rhythm, systolic murmur, diastolic murmur, rubs, gallop - GI/Abdominal GI/Abdominal exam: Present: soft, normal bowel sounds. Absent: distended, tenderness, guarding, rebound, rigid, diminished bowel sounds - Extremities Exam Extremities exam: Present: normal inspection, full ROM - Back Exam Back exam: Present: normal inspection, full ROM. Absent: tenderness, CVA tenderness (R), CVA tenderness (L), muscle spasm, paraspinal tenderness, vertebral tenderness, rash noted - Neurological Exam Neurological exam: Present: alert, oriented X3, normal gait - Expanded Neurological Exam Expanded Patient oriented to: Present: person, place, time Cranial nerves: EOM's Intact: Normal, Facial Sensation: Normal Cerebellar function: Finger to Nose: Normal Upper motor neuron: Pronator Drift: Normal, Sensory Extinction: Normal Motor strength exam: RUE: 5, LUE: 5, RLE: 5, LLE: 5 Best Eye Response ([place]): (4) open spontaneously Best Motor Response ([place]): (6) obeys commands Best Verbal Response ([place]): (5) oriented [place] Total: 15 - Psychiatric Psychiatric exam: Present: normal affect, normal mood - Skin Skin exam: Present: warm, dry, intact, normal color. Absent: rash ED Course Vital Signs 10/30/21 00:44 Temperature 98.7 F Pulse Rate 75 Respiratory 17 Rate Blood Pressure 130/84 [Right] O2 Sat by Pulse 100 Oximetry - Reevaluation(s) Reevaluation #1: 10/30/21 08:12 Patient is speaking in full sentences with no signs of distress noted. ED Medical Decision Making - Lab Data Result diagrams: 10/30/21 01:32 10/30/21 01:32 Lab Results 10/30/21 10/30/21 Range/Units 01:32 01:32 WBC 6.2 (4.5-11.0) K/mm3 RBC 4.07 (3.65-5.03) M/mm3 Hgb 13.3 (10.1-14.3) gm/dl Hct 40.3 (30.3-42.9) % MCV 99 H (79-97) fl MCH 33 H (28-32) pg MCHC 33 (30-34) % RDW 12.7 L (13.2-15.2) % Plt Count 289 (140-440) K/mm3 Lymph % (Auto) 35.8 H (13.4-35.0) % [place] % (Auto) 9.8 H (0.0-7.3) % Eos % (Auto) 0.8 (0.0-4.3) % Baso % (Auto) 0.9 (0.0-1.8) % Lymph # (Auto) 2.2 (1.2-5.4) K/mm3 [place] # (Auto) 0.6 (0.0-0.8) K/mm3 Eos # (Auto) 0.1 (0.0-0.4) K/mm3 Baso # (Auto) 0.1 (0.0-0.1) K/mm3 Seg Neutrophils % 52.7 (40.0-70.0) % Seg Neutrophils # 3.3 (1.8-7.7) K/mm3 Sodium 137 (137-145) mmol/L Potassium 4.3 (3.6-5.0) mmol/L Chloride 100.0 (98-107) mmol/L Carbon Dioxide 26 (22-30) mmol/L Anion Gap 15 mmol/L BUN 8 (7-17) mg/dL Creatinine 0.5 L (0.6-1.2) mg/dL Estimated GFR > 60 ml/min BUN/Creatinine Ratio 16 % Glucose 89 (65-100) mg/dL Calcium 10.4 H (8.4-10.2) mg/dL Total Bilirubin 0.90 (0.1-1.2) mg/dL AST 47 H (5-40) units/L ALT 36 (7-56) units/L Alkaline Phosphatase 158 H (35-129) units/L Total Protein 7.9 (6.3-8.2) g/dL Albumin 4.5 (3.9-5) g/dL Albumin/Globulin Ratio 1.3 % - Medical Decision Making Patient is stable and was examined by me. Physical exam otherwise is un remarkable. Labs has been obtained and with no significance noted. Patient was notified of the lab results with no questions noted by the patient. Patient does have a primary care doctor that she follows and I instructed patient to follow-up with a primary care doctor in 3-5 days or if symptoms worsen and continue return to emergency room as soon as possible. At time of discharge, the patient does not seem toxic or ill in appearance. No acute signs of distress noted. Patient agrees to discharge treatment plan of care. No further questions noted by the patient. Critical care attestation.: If time is entered above; I have spent that time in minutes in the direct care of this critically ill patient, excluding procedure time. ED Disposition Clinical Impression: General medical exam Disposition: 01 HOME / SELF CARE / HOMELESS Is pt being admited?: No Does the pt Need Aspirin: No Condition: Stable Additional Instructions: Follow-up with a primary care doctor in 3-5 days or if symptoms worsen and continue return to emergency room as soon as possible. Referrals: ADRIANA MURPHY MD [Primary Care Provider] - 3-5 Days ISABEL LAINEZ MD [Staff Physician] - 3-5 Days Time of Disposition: 09:17
[2021-10-30 10:42] VITALS: BP 130/78
== END 2021-10-30 10:41 | disposition home or self-care (01) ==
LOC: ED 22:24
DX: Z00.00 Encounter for general adult medical examination without abnormal findings (principal); I10 Essential (primary) hypertension; Z88.6 Allergy status to analgesic agent
CPT/HCPCS: 36415; 80048; 80053; 85025; 96360; 99283; J7030